=== PATIENT | female | born 1955 | race Caucasian/White ===

== ENCOUNTER 2023-06-10 14:36 | Outpatient (CLI) | payer OTHER, SELFPAY ==
--- NOTE | ~2023-06-10 | XR_ITS ---
EXAMINATION: XR hip RT min 2V DATE: 06/10/2023 14:50 INDICATION: Pain in unspecified hip. TECHNIQUE: 2 views of right hip were obtained. COMPARISON: None. FINDINGS: Bone alignment is normal. No fracture. There is mild right hip osteoarthritis. IMPRESSION: 1. Mild right hip osteoarthritis. Reviewed, dictated and finalized at location E. [facility]
== END 2023-06-10 14:37 | disposition home or self-care (01) ==
PROVIDERS: PCP Nurse Practitioner Adult Health; Visit Provider Nurse Practitioner Adult Health
DX: Z12.31 Encounter for screening mammogram for malignant neoplasm of breast (principal); M25.551 Pain in right hip
CPT/HCPCS: 73502

== ENCOUNTER 2024-12-02 14:31 | Outpatient (CLI) | payer OTHER, SELFPAY ==
--- OUTSIDE RECORDS SUMMARY | 2024-12-02 14:38 | XMS_ITS | Encounter Summary ---
Author Organization [facility] Address [address] [place] [address] Phone Care Team Providers Care Sleep Medicine Physician Name Role Phone Selwyn Weathers MD Primary Care Provider [phone] Dinesh Sewell APRN, STEELER Unavailable + [phone] Reason for Visit * Reason Comments Medication Refill Encounter Details Date Type Department Care Team (Late Contact Info) Description 02/25/2024 Refill [facility] [address] [place] [address] Dinesh Sewell APRN, STEELER [address] [place] [address] Medication Refill Social History Tobacco Use Types Packs/Day Years Used Date Smoking Tobacco: Former Cigarettes Q uit: 02/11/2009 Smokeless Tobacco: Never Alcohol Use Standard Drinks/Week Comments Not Currently 0 (1 standard drink = 0.6 oz pur e alcohol) Comments No Sex and Gender Information Value Date Recorded Sex Assigned at Not on file Legal Sex Female 12:22 AM CDT Gender Identity Not on file Sexual Orientation Not on file documented as of this encounter Plan of Treatment Upcoming Encounters Date Type Department Care Team (Late Contact Info) Description 12/14/2024 3:30 PM CDT Office Visit [facility] [address] [place] [address] Dinesh Sewell APRN, STEELER [address] [place] [address] documented as of this encounter Visit Diagnoses Diagnosis Bladder spasm Other specified disorders of bladder documented in this encounter Care Teams Sleep Medicine Physician Relationship Specialty [place] [address] [facility] [place] [address] PCP - General Family Medicine 10/11/23 Dinesh Sewell, SANITATION WORKER HOSING MACHINERY, STEELER [address] [place] [address] Nurse Practitioner Advanced Practice Nurse 01/07/24 documented as of this encounter
--- OUTSIDE RECORDS SUMMARY | 2024-12-02 14:38 | XMS_ITS | Clinical Summary ---
Author Organization [facility] Address [address] [place] [address] Phone Care Team Providers Care Lining Ironer Name Role Phone Selwyn Weathers MD Primary Care Provider Dinesh Sewell APRN, LOZENGE MAKER HELPER Unavailable Allergies No known active allergies Medications diclofenac (VOLTAREN) 75 MG Tablet Delayed Response Take 75 mg by mouth 2 times daily. Active traMADol (ULTRAM) 50 MG TabletIndication s:Pain Take 50 mg by mouth 2 times daily. Indications: Pain Active atorvastatin (LIPITOR) 40 MG Tablet Take 40 mg by mouth daily. Active furosemide (LASIX) 20 MG Tablet Take 20 mg by mouth daily. Active Melatonin 5 MG Capsule Take 5 mg by mouth nightly as needed for Other (insomnia). 3 Active nitroGLYCERIN (NITROSTAT) 0.4 MG SL Tablet 0.4 mg by Sublingual route every 5 minutes as needed for Chest pain. take one tab every five minutes up to three doses then call 911 Active albuterol (Ventolin HFA) 108 (90 Base) MCG/ACT Aerosol Solution take 2 Puffs by inhalation every 4 hours as needed for Cough or Wheezing. Active metoprolol Succinate (TOPROL-XL) 50 MG TABLET SR 24 HR Take 50 mg by mouth daily. 3 Active aspirin 81 MG Chewable Tablet Take 81 mg by mouth. 3 Active calcitRIOL (ROCALTROL) 0.25 MCG Capsule 1 CAPSULE ORALLY ONCE A WEEK 4 Active isosorbide mononitrate (IMDUR) 60 MG TABLET SR 24 HR Take 60 mg by mouth daily. Active metoprolol tartrate (LOPRESSOR) 25 MG Tablet Take 25 mg by mouth 2 times daily. 4 Active solifenacin (VESICARE) 5 MG TabletIndication s:Bladder spasm Take 1 Tablet by mouth daily. 90 Tablet 4 Active Encounters Date Type Department Care Team Description 11/09/2024 1:00 PM CDT Clinical Support [facility] [address] [place] [address] Gerson Elliott Urologlexi Urinary retention (Primary Dx) Discharge Disposition: Discharged to home or Selfcare 11/09/2024 Travel 10/12/2024 1:00 PM CDT Clinical Support [facility] [address] [place] [address] Gerson Elliott Urologlexi Urinary retention (Primary Dx) Discharge Disposition: Discharged to home or Selfcare 10/12/2024 Travel 09/25/2024 Telephone [facility] [address] [place] [address] Dinesh Sewell APRN, CNP 09/17/2024 Results Follow-Up [facility] [address] [place] [address] Dinesh Sewell APRN, LOZENGE MAKER HELPER POCT UA AUTOMATED W/O MICRO, CULTURE, URINE 09/14/2024 1:00 PM CDT Clinical Support [facility] [address] [place] [address] NurseGerson Urologlexi UTI symptoms (Primary Dx); Urinary retention Discharge Disposition: Discharged to home or Selfcare 09/12/2024 Travel from Last 3 Months Social History Tobacco Use Types Packs/Day Years Used Date Smoking Tobacco: Former Cigarettes Q uit: 02/11/2009 Smokeless Tobacco: Never Tobacco Cessation:Counseling Given: No Alcohol Use Standard Drinks/Week Comments Not Currently 0 (1 standard drink = 0.6 oz pur e alcohol) Comments No Sex and Gender Information Value Date Recorded Sex Assigned at Not on file Legal Sex Female 12:22 AM CDT Gender Identity Not on file Sexual Orientation Not on file Last Filed Vital Signs Vital Sign Reading Time Taken Comments Blood Pressure 128/60 01/17/2024 4:22 PM CDT Pulse 64 01/17/2024 4:22 PM CDT Temperature 36.4 C (97.5 F) 01/17/2024 4:22 PM CDT Respiratory Rate 20 01/17/2024 4:22 PM CDT Oxygen Saturation 100% 01/17/2024 4:22 PM CDT Inhaled Oxygen Concentration - - Weight 66.2 kg (146 lb) 01/07/2024 11:06 AM CDT Height 170.2 cm (5' 7) 01/07/2024 11:06 AM CDT Body Mass Index 22.87 01/07/2024 11:06 AM CDT Plan of Treatment Upcoming Encounters Date Type Department Care Team (Late st Contact Info) Description 12/14/2024 3:30 PM CDT Office Visit [facility] [address] [place] [address] Dinesh Sewell, DREDGE PUMPER, LOZENGE MAKER HELPER [address] [place] [address] Health Maintenance Due Date Last Done Comments DEXA Bone Density 1955 Hepatitis C Virus (HCV) Screening 1955 TdaP Immunization 1954 Cologuard 1999 Colonoscopy 1999 Colorectal Cancer Screening 1999 Immunochemical Fecal Occult Blood 1999 Zoster Immunization (1 of 2) 02/13/2004 Pneumococcal Immunization (50+ years) (2 of 2 - PCV) 02/25/2014 02/25/2013 Mammogram 04/22/2016 04/22/2015 SARS-COV-2 Immunization (2 - season) 2023 04/25/2021 Influenza Immunization (#1) 2024 08/2 07/2023, 02/22/2022, 12/13/2016, Additional history exists Respiratory Syncytial Virus (RSV) Immunization (Adult) (1 - 1-dose 75+ series) 2029 Pneumococcal Immunization Combined Discontinued 02/25/2013 Hepatitis B Immunization Aged Out No longer eligible based on patient's age to complete this topic Human Papillomavirus (HPV) Immunization Aged Out No longer eligible based on patient's age to complete this topic Meningococcal Immunization (ACWY) Aged Out No longer eligible based on patient's age to complete this topic Rotavirus Immunization Aged Out No lo nger eligible based on patient's age to complete this topic Procedures Procedure Name Priority Date/Time Associated Diagnosis Comments CULTURE, URINE Routine 09/14/2024 2:04 PM CDT UTI symptoms POCT UA AUTOMATED W/O MICRO Routine 09/14/2024 1:24 PM CDT UTI symptoms RADHA SCREENING BILATERAL DIGITAL W CAD Routine 04/22/2015 3:09 PM PUBLIC POLICY MEDIATOR Encounter for screening mammogram for breast cancer from Last 3 Months or Most Recently Relevant to Health Maintenance Results * CULTURE, URINE (09/14/2024 2:04 PM CDT) CULTURE RESULTS MIXED GROWTH OF ONE OR MORE DISTAL URETHRAL CONTAMINANTS 09/16/2024 8:42 PM CDT [facility] Culture (Indwelling Catheter) Non-Phlebotomy Collection / Unknown 09/14/2024 2:04 PM CDT 09/14/2024 2:04 PM CDT us Dinesh Sewell DREDGE PUMPER, LOZENGE MAKER HELPER MICROBIOLOGY - GENERAL ORDERABLES Final Result [facility] [address] [place] [address], [place] * (ABNORMAL) POCT UA AUTOMATED W/O MICRO (09/14/2024 1:24 PM CDT) POC UA SPECIFIC GRAVITY 1.010 URINE PH 7.0 5.0 - 9.0 POC URINE LEUKOCYTES 500 /uL(A) Negative Tarik/uL POC URINE NITRITE Positive(A) Negative POC URINE PROTEIN 100 mg/dL(A) Negative mg/dL POC URINE GLUCOSE >1000 mg/dL(A) Negative, Norm mg/dL POC URINE KETONE 15 mg/dL(A) Negative mg/dL POC URINE UROBILINOGEN >=12 E.U./dL (mg/dL)(A) Norm, 0.2 E.U./dL (mg/dL), 1 E.U./dL (mg/dL) POC URINE BILIRUBIN 6 mg/dL(A) Negative mg/dL POC URINE BLOOD INSTRUMENT 250 Martin/uL(A) Negative Martin/uL POC URINE COLOR Light Yellow POC URINE CLARITY Slightly Cloudy Urine 09/14/2024 1:24 PM CDT Dinesh Sewell APRN, LOZENGE MAKER HELPER POINT OF CARE TESTING (MANUAL) Final Result * RADHA SCREENING BILATERAL DIGITAL W CAD (04/22/2015 3:09 PM PUBLIC POLICY MEDIATOR) Anatomical Region Laterality Modality breast Bilateral Mammography 04/22/2015 2:45 PM PUBLIC POLICY MEDIATOR Narrative 04/30/2015 9:24 AM PUBLIC POLICY MEDIATOR - RADHA SCREENING BILATERAL DIGITAL W CAD BILATERAL DIGITAL SCREENING MAMMOGRAM WITH CAD WITH MEDIOLATERAL OBLIQUE CRANIOCAUDAL: 04/22/2015 The study was acquired using digital technology and interpreted from soft copy. Current study was also evaluated with ICAD version 7.2. CLINICAL: Routine screening. Patient has no complaints. No personal history of cancer. No family history of breast cancer. COMPARISONS: Comparison is made to exams dated: 06/09/2013 [facility] and 07/20/2011 [facility]. BREAST TISSUE:There are scattered fibroglandular densities in both breasts. FINDINGS: No significant masses, calcifications, or other findings are seen in either breast. There has been no significant interval change. IMPRESSION: BI-RAD 1 NEGATIVE There is no mammographic evidence of malignancy. A 1 year screening mammogram is recommended. The patient has been or will be contacted. The patient will be entered into an automated reminder system to schedule a mammogram in one year. Electronically signed by: Ciarra forbes/jarad:04/29/2015 09:58:58 Multi Mission Helicopter Aircrewman: Divya LOPEZ)(M), [facility] letter sent: Normal Exam Reading location: [place] BI-RADS: 1 Negative Procedure Note Ciarra Lazo MD - 04/30/2015 - RADHA SCREENING BILATERAL DIGITAL W CAD BILATERAL DIGITAL SCREENING MAMMOGRAM WITH CAD WITH MEDIOLATERAL OBLIQUE CRANIOCAUDAL: 04/22/2015 The study was acquired using digital technology and interpreted from soft copy. Current study was also evaluated with ICAD version 7.2. CLINICAL: Routine screening. Patient has no complaints. No personal history of cancer. No family history of breast cancer. COMPARISONS: Comparison is made to exams dated: 06/09/2013 [facility] and 07/20/2011 [facility]. BREAST TISSUE:There are scattered fibroglandular densities in both breasts. FINDINGS: No significant masses, calcifications, or other findings are seen in either breast. There has been no significant interval change. IMPRESSION: BI-RAD 1 NEGATIVE There is no mammographic evidence of malignancy. A 1 year screening mammogram is recommended. The patient has been or will be contacted. The patient will be entered into an automated reminder system to schedule a mammogram in one year. Electronically signed by: Ciarra Laoz M.D. pw/jarad:04/29/2015 09:58:58 Multi Mission Helicopter Aircrewman: Divya HOANG(Sunny)(M), [facility] letter sent: Normal Exam Reading location: [facility] BI-RADS: 1 Negative Rajwinder Mina MD IMG MAMMO ORDERABLES Fin al Result from Last 3 Months or Most Recently Relevant to Health Maintenance Insurance MEDICARE C WOOD Advance Directives Documents on File Type Date Recorded Patient Stock Fitter Expl anation Other Advance Directive 03/27/2021 11:33 AM ACTIVSTYLE ORDER FOR M Other Advance Directive 03/13/2021 11:47 AM Active style pads order form * Full Code (Latest Code Status on File) Date Activated Date Inactivated Comments 02/24/2019 7:03 AM Care Teams Lining Ironer Relationship Specialty [place] [address] [place] [address] PCP - General Family Medicine 10/11/23 Dinesh Sewell, DREDGE PUMPER, LOZENGE MAKER HELPER [address] [place] [address] Nurse Practitioner Advanced Practice Nurse 01/07/24
--- OUTSIDE RECORDS SUMMARY | 2024-12-02 14:38 | XMS_ITS | Encounter Summary ---
Author Organization [facility] Address [address] [place] [address] Phone Care Team Providers Care Manager Ccu Name Role Phone Selwyn Weathers MD Primary Care Provider [phone] Dinesh Sewell APRN, BORING MACHINE FEEDER Unavailable + [phone] Reason for Visit * Reason Comments Medication Refill Encounter Details Date Type Department Care Team (Late Contact Info) Description 01/23/2024 Refill [facility] [address] [place] [address] Dinesh Sewell APRN, BORING MACHINE FEEDER [address] [place] [address] Medication Refill Social History Tobacco Use Types [...] Description 12/14/2024 3:30 PM CDT Office Visit [facility] [address] [place] [address] Dinesh Sewell APRN, BORING MACHINE FEEDER [address] [place] [address] documented as of this encounter Visit Diagnoses Diagnosis Bladder spasm Other specified disorders of bladder documented in this encounter Care Teams Manager Ccu Relationship Specialty [place] [address] [facility] [place] [address] PCP - General Family Medicine 10/11/23 Dinesh Sewell, PHONE MANAGER, BORING MACHINE FEEDER [address] [place] [address] Nurse Practitioner Advanced Practice Nurse 01/07/24 documented as of this encounter
--- OUTSIDE RECORDS SUMMARY | 2024-12-02 14:38 | XMS_ITS | Encounter Summary ---
Author Organization [facility] Address [facility] [place] [address] Care Team Providers Care Radar Systems Engineer Name Role Phone Lindy [place] MD Primary Care Provider [phone] Deion Denson MD, Catie Unavailable [phone] Selwyn Weathers MD Primary Care Provider [phone] Encounter Details Date Type Department Care Team (Late st Contact Info) Description 02/28/2015 Abstract [facility] [place] [address] [address] Catie Albarran MD [address] [address] Social History Tobacco Use Types Packs/Day Years Used Date Smoking Tobacco: Former Cigarettes 2 20 1 04/1992 - 02/2013 Comments Unknown Sex and Gender Information Value Date Recorded Sex Assigned at Not on file Legal Sex Female 9:37 PM CDT Gender Identity Not on file Sexual Orientation Not on file Occupation Industry Job Start Date Job End Date Disabled Not on file Not on file Not on file documented as of this encounter Plan of Treatment Not on file documented as of this encounter Visit Diagnoses Not on filedocumented in this encounter Care Teams Radar Systems Engineer Relationship Specialty Start Date End Date Lindy Sumner MD PCP - General INTERNAL MEDICINE 01/03/16 07/30/21 [place] [address] [place] [address] PCP - General FAMILY PRACTICE 07/31/21 02/24/24 Catie Albarran MD CARDIOVASCULAR DISEASE 01/03/16 documented as of this encounter
--- OUTSIDE RECORDS SUMMARY | 2024-12-02 14:38 | XMS_ITS | Encounter Summary ---
Author Organization [facility] Address [address] [place] [address] Phone Care Team Providers Care Bogger Operator Name Role Phone Selwyn Weathers MD Primary Care Provider [phone] Dinesh Sewell APRN, ASBESTOS REMOVAL WORKER Unavailable + [phone] Reason for Visit * Reason Comments Medication Refill Encounter Details Date Type Department Care Team (Late Contact Info) Description 03/04/2024 Refill [facility] [address] [place] [address] Dinesh Sewell APRN, ASBESTOS REMOVAL WORKER [address] [place] [address] Medication Refill Social History Tobacco Use Types [...] Description 12/14/2024 3:30 PM CDT Office Visit [facility] [address] [place] [address] Dinesh Sewell APRN, ASBESTOS REMOVAL WORKER [address] [place] [address] documented as of this encounter Visit Diagnoses Diagnosis Bladder spasm Other specified disorders of bladder documented in this encounter Care Teams Bogger Operator Relationship Specialty [place] [address] [facility] [address] PCP - General Family Medicine 10/11/23 Dinesh Sewell, TEACHER ADULT EDUCATION, ASBESTOS REMOVAL WORKER [address] [place] [address] Nurse Practitioner Advanced Practice Nurse 01/07/24 documented as of this encounter
--- OUTSIDE RECORDS SUMMARY | 2024-12-02 14:38 | XMS_ITS | Encounter Summary ---
Author Organization [facility] Address [address] [place] [address] Phone Care Team Providers Care Registered Safety Engineer Name Role Phone Kris Olea MD Primary Care Provider [phone] Selwyn Weathers MD Primary Care Provider [phone] Dinesh Sewell APRN, AUTO TECHNICIAN Unavailable + [phone] Encounter Details Date Type Department Care Team (Late Contact Info) Description 10/04/2021 [facility] [address] [place] [address] [place] [address] [place] [address] Encounter for fitting and adjustment of urinary device; Retention of urine, unspecified; Encounter for attention to cystostomy (HCC) Social History Tobacco Use Types Packs/Day Years [...] Description 12/14/2024 3:30 PM CDT Office Visit [facility] [address] [place] [address] Dinesh Sewell, DETHISTLER OPERATOR, AUTO TECHNICIAN [address] [place] [id number] documented as of this encounter Procedures Procedure Name Priority Date/Time Associated Diagnosis Comments URINALYSIS REFLEX IF INDICATED BY ABNORMAL RESULTS Routine 10/04/2021 9:15 AM CDT Encounter for fitting and adjustment of urinary device Retention of urine, unspecified Encounter for attention to cystostomy (HCC) CULTURE, URINE Routine 10/04/2021 9:15 AM CDT Encounter for fitting and adjustment of urinary device Retention of urine, unspecified Encounter for attention to cystostomy (HCC) documented in this encounter Results * CULTURE, URINE (10/04/2021 9:15 AM CDT) CULTURE RESULTS KLEBSIELLA PNEUMONIAE 10/07/2021 4:59 PM CDT [facility] CULTURE RESULTS KLEBSIELLA PNEUMONIAE 10/07/2021 4:59 PM CDT [facility] Urine URINE SPECIMEN COLLECTION, CLEAN CATCH / Unknown Non-Phlebotomy Collection / Unknown 10/04/2021 9:15 AM CDT 10/04/2021 10:03 AM CDT Narrative Organism Antibiotic Method Susceptibility Klebsiella pneumoniae Ampicillin/sulbactam [facility] VITEK II <=2 mcg/ml: Susceptible Klebsiella pneumoniae Cefazolin [facility] VITEK II <=4 mcg/ml: Susceptible Klebsiella pneumoniae Cefepime [facility] VITEK II <=1 mcg/ml: Susceptible Klebsiella pneumoniae Ceftriaxone [facility] VITEK II <=1 mcg/ml: Susceptible Klebsiella pneumoniae Gentamicin [facility] V[facility]K II <=1 mcg/ml: Susceptible Klebsiella pneumoniae Levofloxacin [facility] VITEK II <=0.12 mcg/ml: Susceptible Klebsiella pneumoniae Meropenem [facility] VITEK II <=0.25 mcg/ml: Susceptible Klebsiella pneumoniae Nitrofurantoin [facility] VITEK II 64 mcg/ml: Intermediate Klebsiella pneumoniae Piperacillin/Tazobactam [facility] VIT EK II <=4 mcg/ml: Susceptible Klebsiella pneumoniae Tobramycin [facility] VITEK II <=1 mcg/ml: Susceptible Klebsiella pneumoniae Trimeth/Sulfamethoxazole [facility] JUDSON II <=20 mcg/ml: Susceptible Klebsiella pneumoniae Ampicillin/sulbactam [facility] VITEK II <=2 mcg/ml: Susceptible Klebsiella pneumoniae Cefazolin [facility] VITEK II <=4 mcg/ml: Susceptible Klebsiella pneumoniae Cefepime [facility] VITEK II <=1 mcg/ml: Susceptible Klebsiella pneumoniae Ceftriaxone [facility] VITEK II <=1 mcg/ml: Susceptible Klebsiella pneumoniae Gentamicin [facility] VITEK II <=1 mcg/ml: Susceptible Klebsiella pneumoniae Levofloxacin [facility] VITEK II <=0.12 mcg/ml: Susceptible Klebsiella pneumoniae Meropenem [facility] VITEK II <=0.25 mcg/ml: Susceptible Klebsiella pneumoniae Nitrofurantoin [facility] VITEK II 128 mcg/ml: Resistant Klebsiella pneumoniae Piperacillin/Tazobactam [facility] VIT EK II <=4 mcg/ml: Susceptible Klebsiella pneumoniae Tobramycin [facility] VITEK II <=1 mcg/ml: Susceptible Klebsiella pneumoniae Trimeth/Sulfamethoxazole [facility] JUDSON II <=20 mcg/ml: Susceptible us Selwyn Weathers MD MICROBIOLOGY - GENERAL ORDE [facility] Final Result [facility] [address] [place] [address], * (ABNORMAL) URINALYSIS REFLEX IF INDICATED BY ABNORMAL RESULTS (10/04/2021 9:15 AM CDT) SPECIFIC GRAVITY 1.005 1.003 - 1.030 10/04/2021 10:39 AM CDT [facility] URINE PH 7.0 5.0 - 9.0 10/04/2021 10:39 AM CDT [facility] WBC ESTERASE 500 /uL(A) Negative 10/04/2021 10:39 AM CDT [facility] NITRITE Negative Negative 10/04/2021 10:39 AM CDT [facility] PROTEIN, RANDOM URINE 30 mg/dL(A) Negative 10/04/2021 10:39 AM CDT [facility] URINE GLUCOSE, QUAL Negative Negative 10/04/2021 10:39 AM CDT [facility] URINE KETONES Negative Negative 10/04/2021 10:39 AM CDT [facility] UROBILINOGEN Normal Normal mg/dL 10/04/2021 10:39 AM CDT [facility] URINE BLOOD 50 /uL(A) Negative madonna/ul 10/04/2021 10:39 AM CDT [facility] URINALYSIS COLOR Light yellow 2021 10:39 AM CDT [facility] URINALYSIS CLARITY Slightly Cloudy 10/04/2021 10:39 AM CDT [facility] WBC (Urine) Packed(A) Negative, 0-5 /hpf 10/04/2021 10:39 AM CDT [facility] URINE RBC'S 6-10(A) Negative, 0-2 /hpf 10/04/2021 10:39 AM CDT [facility] EPITHELIAL CELLS Moderate amount /lpf 10/04/2021 10:39 AM CDT [facility] BACTERIA, URINE Moderate(A) Negative /hpf 10/04/2021 10:39 AM CDT [facility] Urine URINE SPECIMEN COLLECTION, CLEAN CATCH / Unknown Non-Phlebotomy Collection / Unknown 10/04/2021 9:15 AM CDT 10/04/2021 10:03 AM CDT us Selwyn Weathers MD URINE ORDERABLES Final Resu lt [facility] [address] [place] [address] documented in this encounter Visit Diagnoses Diagnosis Encounter for fitting and adjustment of urinary device Retention of urine, unspecified Encounter for attention to cystostomy (HCC) Attention to cystostomy documented in this encounter Care Teams Registered Safety Engineer Relationship Specialty [place] [address] [place] [address] PCP - General Family Medicine 01/08/19 10/10/23 [place] [address] [place] [address] PCP - General Family Medicine 10/11/23 Dinesh Sewell APRN, AUTO TECHNICIAN [address] [place] [address] Nurse Practitioner Advanced Practice Nurse 01/07/24 documented as of this encounter
--- OUTSIDE RECORDS SUMMARY | 2024-12-02 14:38 | XMS_ITS | Encounter Summary ---
Author Organization [facility] Address [address] [place] [address] Phone Care Team Providers Care Uniforms Sales Representative Name Role Phone Selwyn Weathers MD Primary Care Provider [phone] Dinesh Sewell APRN, ARRESTING GEAR OPERATOR Unavailable [phone] Reason for Visit * Reason Comments Medication Refill Encounter Details Date Type Department Care Team (Late Contact Info) Description 12/24/2023 Refill [facility] [address] [place] [address] Dinesh Sewell APRN, ARRESTING GEAR OPERATOR [address] [place] [address] Medication Refill Social History Tobacco Use Types [...] Description 12/14/2024 3:30 PM CDT Office Visit [facility] [address] [place] [address] Dinesh Sewell APRN, ARRESTING GEAR OPERATOR [address] [place] [address] documented as of this encounter Visit Diagnoses Diagnosis Bladder spasm Other specified disorders of bladder documented in this encounter Care Teams Uniforms Sales Representative Relationship Specialty [place] [address] [address] [address] PCP - General Family Medicine 10/11/23 Dinesh Sewell, NET WEB DEVELOPER, ARRESTING GEAR OPERATOR [address] [place] [address] Nurse Practitioner Advanced Practice Nurse 01/07/24 documented as of this encounter
--- OUTSIDE RECORDS SUMMARY | 2024-12-02 14:39 | XMS_ITS | Encounter Summary ---
Author Organization [facility] Address [address] [place] [place] [address] Phone Care Team Providers Care Image Processing Engineer Name Role Phone Kris Olea MD Primary Care Provider [phone] Selwyn Weathers MD Primary Care Provider [phone] Dinesh Sewell APRN, RIVET MAKER Unavailable + [phone] Encounter Details Date Type Department Care Team (Late Contact Info) Description 06/09/2021 [facility] [address] [place] [id number] Jazzmine Duarte, EQUITY DIRECTOR, RIVET MAKER [address] [place] [address] Urinary tract infection, site not specified Social History Tobacco Use Types Packs/Day Years [...] Description 12/14/2024 3:30 PM CDT Office Visit [facility] [address] [place] [address] Dinesh Sewell, EQUITY DIRECTOR, RIVET MAKER [address] [place] [address] documented as of this encounter Procedures Procedure Name Priority Date/Time Associated Diagnosis Comments URINALYSIS REFLEX IF INDICATED BY ABNORMAL RESULTS Routine 06/09/2021 9:55 AM ROLL CARRIER Urinary tract infection, site not specified CULTURE, URINE Routine 06/09/2021 9:55 AM ROLL CARRIER Urinary tract infection, site not specified documented in this encounter Results * CULTURE, URINE (06/09/2021 9:55 AM ROLL CARRIER) CULTURE RESULTS ESCHERICHIA COLI 06/11/2021 4:10 PM ROLL CARRIER [facility] Comment:PRESUMPTIVE IDENTIFI CATION CULTURE RESULTS ALSO MIXED GROWTH OF DISTAL URETHRA CONTAMINANTS. 06/11/2021 4:10 PM ROLL CARRIER [facility] Urine Non-Phlebotomy Collection / Unknown 06/09/2021 9:55 AM ROLL CARRIER 06/09/2021 1:12 PM ROLL CARRIER Narrative Organism Antibiotic Method Susceptibility Escherichia coli Ampicillin [facility] VITEK II >=32 mcg/ml: Resistant Escherichia coli Ampicillin/sulbactam [facility] II >=32 mcg/ml: Resistant Escherichia coli Cefazolin [facility] II <=4 mcg/ml: Susceptible Escherichia coli Cefepime [facility] II <=1 mcg/ml: Susceptible Escherichia coli Ceftriaxone [facility] II <=1 mcg/ml: Susceptible Escherichia coli Gentamicin [facility] II <=1 mcg/ml: Susceptible Escherichia coli Levofloxacin [facility] II <=0.12 mcg/ml: Susceptible Escherichia coli Meropenem [facility] II <=0.25 mcg/ml: Susceptible Escherichia coli Nitrofurantoin [facility] II <=16 mcg/ml: Susceptible Escherichia coli Piperacillin/Tazobactam [facility] II <=4 mcg/ml: Susceptible Escherichia coli Tobramycin [facility] II <=1 mcg/ml: Susceptible Escherichia coli Trimeth/Sulfamethoxazole [facility] I I >=320 mcg/ml: Resistant Jazzmine L Zahniser EQUITY DIRECTOR, RIVET MAKER MICROBIOLOGY - GENERAL ORDERABLES Final Result [facility] [address] [place] [address], * (ABNORMAL) URINALYSIS REFLEX IF INDICATED BY ABNORMAL RESULTS (06/09/2021 9:55 AM ROLL CARRIER) SPECIFIC GRAVITY 1.005 1.003 - 1.030 06/09/2021 1:40 PM ROLL CARRIER [facility] URINE PH 7.0 5.0 - 9.0 06/09/2021 1:40 PM [facility] CARRIER [facility] WBC ESTERASE 500 /uL(A) Negative 06/09/2021 1:40 PM [facility] NITRITE Positive(A) Negative 06/09/2021 1:40 PM [facility] PROTEIN, RANDOM URINE 30 mg/dL(A) Negative 06/09/2021 1:40 PM [facility] URINE GLUCOSE, QUAL Negative Negative 06/09/2021 1:40 PM [facility] URINE KETONES Negative Negative 06/09/2021 1:40 PM [facility] UROBILINOGEN Normal Normal mg/dL 06/09/2021 1:40 PM [facility] URINE BLOOD 250 /uL(A) Negative madonna/ul 06/09/2021 1:40 PM [facility] CARRIER [facility] URINALYSIS COLOR Straw 06/10/19 1:40 PM ROLL CARRIER [facility] URINALYSIS CLARITY Very Cloudy 06/09/2021 1:40 PM [facility] WBC (Urine) 21-50(A) Negative, 0-5 /hpf 06/09/2021 1:40 PM [facility] URINE RBC'S 3-5(A) Negative, 0-2 /hpf 06/09/2021 1:40 PM [facility] EPITHELIAL CELLS Small amount /lpf 2021 1:40 PM [facility] BACTERIA, URINE Many(A) Negative /hpf 06/09/2021 1:40 PM ROLL CARRIER [facility] Urine Non-Phlebotomy Collection / Unknown 06/09/2021 9:55 AM ROLL CARRIER 06/09/2021 1:12 PM ROLL CARRIER us Jazzmine Duarte APRN, EDEN[place]SON URINE ORDERABLES Final Result [facility] [address] [place] [address] documented in this encounter Visit Diagnoses Diagnosis Urinary tract infection, site not specified documented in this encounter Care Teams Image Processing Engineer Relationship Specialty [place] [address] [place] [address] PCP - General Family Medicine 01/08/19 10/10/23 [place] [address] [place] [address] PCP - General Family Medicine 10/11/23 Dinesh Sewell APRN, [facility] [address] [place] [address] Nurse Practitioner Advanced Practice Nurse 01/07/24 documented as of this encounter
--- OUTSIDE RECORDS SUMMARY | 2024-12-02 14:39 | XMS_ITS | Clinical Summary ---
Author Organization [facility] Address [address] [place] [address] Care Team Providers Care Development Disability Specialist Name Role Phone Deion Denson MD, Catie Unavailable [phone] Allergies No known active allergies Medications aspirin 81 MG chewable tablet Chew 1 tablet (81 mg total) by mouth daily. 03/23/20 13 Active atorvastatin 40 MG tablet Take 1 tablet (40 mg total) by mouth nightly at bedtime. 90 tablet 3 04/16/19 17 Active Additional Information Patient not taking.Reported on 03/14/2023 albuterol sulfate HFA 108 (90 Base) MCG/ACT inhaler Ventolin HFA 90 mcg/actuation aerosol inhaler Active furosemide 20 MG tablet Take 0.5 tablets (10 mg total) by mouth daily. Active isosorbide mononitrate ER 30 MG 24 hr tablet Take 1 tablet (30 mg total) by mouth every morning. 05/11/19 22 Active nitroglycerin 0.4 MG SL tablet nitroglycerin 0.4 mg sublingual tablet Active ondansetron (ZOFRAN-ODT) 4 MG disintegrating tablet Take 1 tablet (4 mg total) by mouth. 07/03/19 22 Active metoprolol succinate ER (TOPROL-XL) 50 MG 24 hr tablet TAKE 1 TABLET BY MOUTH EVERY DAY. STOP COREG 08/01/19 23 Active Melatonin 5 MG Cap Take 5 mg by mouth. 05/30/19 23 Active diclofenac EC (VOLTAREN) 75 MG tabletIndications: Chronic bilateral low back pain without sciatica TAKE 1 TABLET(75 MG) BY MOUTH TWICE DAILY 60 tablet 1 02/12/20 23 Active Additional Information Patient not taking.Reported on 03/14/2023 traMADol (ULTRAM) 50 MG tabletIndications: Chronic Pain Indications: Chronic Pain TAKE 1 TABLET(50 MG) BY MOUTH TWICE DAILY NEEDED FOR CHRONIC PAIN 60 tablet 07/19/19 24 Active Active Problems Problem Noted Date Diagnosed Date Essential hypertension 09/20/2022 Overview (11/22/2022): Last Assessment & Plan: Condition: stable Discussed target blood pressure. Continue medication as prescribed from PCP/specialist. Take medications at the same time every day. Lifestyle modification advised: DASH diet, reduce stress/anxiety, discussed health weight management, activity as tolerated or advised from PCP, try to avoid alcohol and nicotine. Follow up in: three months with PCP Stable angina 09/20/2022 Overview (11/22/2022): Last Assessment & Plan: Condition: stable Follow up in: three months with PCP Chronic pain 02/04/2017 Overview (11/22/2022): Last Assessment & Plan: Condition: stable Follow up in: three months with PCP Plantar fasciitis 02/04/2017 Anxiety 11/20/2016 Idiopathic osteoarthritis 09/06/2016 Overview (11/22/2022): Last Assessment & Plan: Condition: stable Follow up in: three months with PCP Coronary atherosclerosis of [place] coronary alondra ry 01/16/2016 Overview (11/22/2022): Last Assessment & Plan: Condition: stable Follow up in: three months with PCP Cardiomyopathy (CMS/HCC [facility]/HCC) 01/16/2016 Overview (11/22/2022): Last Assessment & Plan: Condition: stable Follow up in: three months with PCP Dyspnea 01/16/2016 Hyperlipidemia 01/16/2016 Overview (11/22/2022): Last Assessment & Plan: Condition: stable/No recent lipid panel Discussed with Odalys behavior modifications to include choosing healthier options for foods and avoiding foods fast foods or foods that are fried, high in trans fats or preservatives. Odalys encouraged to maintain medication compliance and to increase their current level of exercise activity to 3- 4 times weekly. Odalys verbalized understanding and advised to keep all scheduled appointments. Follow up in: three months with PCP Smoking history 01/16/2016 COPD (chronic obstructive pu lmonary disease) ([facility]) 01/16/2016 Overview (11/22/2022): Last Assessment & Plan: Condition: stable Reviewed trigger avoidance and reviewed proper use of inhalers and rescue medications. Reviewed concerning signs/symptoms and ER precautions. Follow up in: three months with PCP Resolved Problems Problem Noted Date Diagnosed Date Resolved Date Aortic valve insufficiency 01/16/2016 0 10/30/2021 History of ETOH abuse 01/16/20162021 Postmenopausal bleeding 05/12/201202/06 Overview (10/30/2021): Note: Improved Immunizations Immunization Administration Dates Next Due Fluzone High Dose - >Age 65 (Prefilled Syringe) 02/22/2022 Influenza Adult (Generic) 12/13/2016,01/04/2016, 04/04/2013 Pneumococcal (Pneumovax 23) 02/25/2013 Family History Medical History Relation Comments CABG Father Dementia Mother Relation Status Comments Father Mother Alive Social History Tobacco Use Types Packs/Day Years Used Date Smoking Tobacco: Former Cigarettes 2 20 1 04/1992 - 02/2013 Smokeless Tobacco: Never Tobacco Cessation:Counseling Given: No Alcohol Use Standard Drinks/Week Comments Not Currently 0 (1 standard drink = 0.6 oz pur e alcohol) History of alcohol abuse. PHQ-2 Answer Date Recorded Patient Health Questionnaire-2 Score 0 11/22/2022 Comments No Sex and Gender Information Value Date Recorded Sex Assigned at Not on file Legal Sex Female 9:37 PM CDT Gender Identity Not on file Sexual Orientation Not on file Occupation Industry Job Start Date Job End Date Disabled Not on file Not on file Not on file Last Filed Vital Signs Vital Sign Reading Time Taken Comments Blood Pressure 135/72 03/14/2023 1:43 PM SENIOR DESIGNER/ART DIRECTOR Pulse 54 03/14/2023 1:38 PM SENIOR DESIGNER/ART DIRECTOR Temperature 36.9 C (98.5 F) 03/14/2023 1:38 PM SENIOR DESIGNER/ART DIRECTOR Respiratory Rate 16 03/14/2023 1:38 PM SENIOR DESIGNER/ART DIRECTOR Oxygen Saturation 99% 03/14/2023 1:38 PM SENIOR DESIGNER/ART DIRECTOR Inhaled Oxygen Concentration - - Weight 66.2 kg (146 lb) 03/14/2023 1:38 PM SENIOR DESIGNER/ART DIRECTOR Height 170.2 cm (5' 7) 03/14/2023 1:38 PM SENIOR DESIGNER/ART DIRECTOR Body Mass Index 22.87 03/14/2023 1:38 PM SENIOR DESIGNER/ART DIRECTOR Plan of Treatment Health Maintenance Due Date Last Done Comments ASCVD Statin 1955 Colorectal Cancer Screening Colonoscopy (10 Years) 1954 Hepatitis C 02/13/1972 DTaP, Tdap and Td Vaccines ( 1 - Tdap) 1973 Mammogram Screening 1994 Zoster Vaccines (1 of 2) 02/13/2004 RSV Immunization or 60+ Years (1 - Risk 60-74 years 1-dose series) 2014 Pneumococcal Vaccine: 50+ Years (2 of 2 - PCV) 02/25/2014 02/25/2013 Annual Medicare Wellness Visit 2019 Dexa Scan (General) 2019 ASCVD LDL 08/08/2023 08/07/2022, 06/30/2021, 10/05/2014 COVID-19 Vaccine (2 - 2023-2 5 season) 2023 04/25/2021 PHQ-2 (Physician [place]) 04/08/2024 11/22/2022 Meningococcal B Vaccine Aged Out No l onger eligible based on patient's age to complete this topic Meningococcal Vaccine Aged Out No jamey lu eligible based on patient's age to complete this topic RSV Immunizations Under 20 Months Aged Out No longer eligible b ased on patient's age to complete this topic Procedures Procedure Name Priority Date/Time Associated Diagnosis Comments LIPID PANEL Routine 08/07/2022 9:11 AM CDT Mixed hyperlipidemia from Last 3 Months or Most Recently Relevant to Health Maintenance Results * LIPID PANEL (08/07/2022 9:11 AM CDT) CHOLESTEROL 139 <200.0 MG/DL 08/07/2022 1:38 PM CDT [facility] TRIGLYCERIDES 93 <150 MG/DL 08/07/2022 1:38 PM CDT [facility] HDL 58 >40.0 MG/DL 08/07/2022 1:38 PM CDT [facility] LDL (CALCULATED) 62 <100 MG/DL 08/08/19 1:38 PM CDT [facility] NON HDL CHOLESTEROL 81 <130 MG/DL 08/07 1:38 PM CDT [facility] CHOL/HDL RATIO 2.4 0.0 - 4.5 08/07/2022 1:38 PM T [facility] VLDL CALCULATION 19 5 - 55 MG/DL 08/07/2022 1:38 PM T [facility] LIPID INTERPRETATION 08/07/2022 1:38 PM T [facility] Comment: [facility] CONCENSUS REPORT RECOMMENDATIONS: ADULT CHILD LOW RISK: CHOLESTEROL <200 <170 TRIGLYCERIDE <150 --- HDL >=60 --- LDL <100 <110 BORDERLINE: CHOLESTEROL 200-239 170-199 TRIGLYCERIDE 150-199 --- HDL 40-59 --- LDL 100-159 110-129 HIGH RISK: CHOLESTEROL >=240 >=200 TRIGLYCERIDE >=200 --- HDL <40 --- LDL >=160 >=130 08/07/2022 9:11 AM CDT us Selwyn Weathers MD LABORATORY Final Resul t [facility] [address] [place] [address], [place] [phone] from Last 3 Months or Most Recently Relevant to Health Maintenance Insurance WOOD Care Teams Development Disability Specialist Relationship Specialty Start Date End Date Catie Albarran MD CARDIOVASCULAR DISEASE 01/03/16
[2024-12-02 19:21] LABS: Hematocrit 41.8 % (37.0-47.0); Hemoglobin 13.5 g/dL (12.0-15.0); Mean Corpuscular HGB Conc 32.3 g/dl (32-36); Mean Corpuscular Hemoglobin 32.5 pg (26-34); Mean Corpuscular Volume 100.7 fl (80-100); Platelet Count Result 231 k/mm3 (150-375); Red Blood Count 4.15 M/mm3 (4.2-5.4); White Blood Count 8.3 K/mm3 (4.5-10.0)
[2024-12-02 19:22] LABS: Alanine Aminotransferase 28 U/L (6-35); Albumin Level 4.5 g/dL (3.5-5.1); Alkaline Phosphatase 75 U/L (38-126); Anion Gap 9 mmol/L (4-12); Aspartate Amino Transferase 73 U/L (14-36); Bilirubin,Total 1.2 mg/dL (0.2-1.3); Blood Urea Nitrogen 31 mg/dL (7-17); Calcium 9.4 mg/dL (8.4-10.2); Carbon Dioxide 28 mmol/L (22-30); Chloride 101 mmol/L (98-107); Cholesterol 163 mg/dL (0-200); Estimated Glomerular Filt Rate > 60; Glucose 96 mg/dL (65-110); HDL Direct 82 mg/dL; Potassium 3.7 mmol/L (3.4-5.0); Sodium 138 mmol/L (137-145); Total Protein 7.5 g/dL (6.3-8.2); Triglycerides 91 mg/dL (<150)
[2024-12-02 19:53] LABS: Thyroid Stimulating Hormone 3.820 uIU/mL (0.465-4.680)
== END 2024-12-02 14:32 | disposition home or self-care (01) ==
PROVIDERS: PCP Nurse Practitioner Adult Health; Visit Provider Nurse Practitioner Adult Health
DX: I10 Essential (primary) hypertension (principal); R53.83 Other fatigue
CPT/HCPCS: 36415; 80053; 80061; 84443; 85027